=== PATIENT | female | born 1985 | race African-American/Black ===

== ENCOUNTER 2016-04-17 10:41 | Emergency (ER) | payer OTHER, SELFPAY ==
[2016-04-17] MEDS ORDERED: Fluorescein Opthalmic Strip ONE (10:57)
[2016-04-17] MEDS ORDERED: Tetracaine HCl 0.5% Ophth Soln 2 ML Bottle ONE (10:58)
[2016-04-17] MEDS ORDERED: Ibuprofen 800 MG TAB ONE (11:11)
[2016-04-17] MEDS ORDERED: HYDROcodone/Acetaminophen 10/325 mg Tablet ONE (11:12)
[2016-04-17] MEDS ORDERED: Cyclopentolate 1% Opth Drop 2 ML BOT ONE (11:51)
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
== END 2016-04-17 12:18 | disposition home or self-care (01) ==
LOC: NAV ERS 10:41
DX: H20.9 Unspecified iridocyclitis (principal); X58.XXXA Exposure to other specified factors, initial encounter
CPT/HCPCS: 70480

== ENCOUNTER 2016-04-22 20:38 | Emergency (ER) | payer SELFPAY ==
[2016-04-22] MEDS ORDERED: Ibuprofen 800 MG TAB ONE (20:52)
[2016-04-22] MEDS ORDERED: Oseltamivir 75 MG CAP ONE (21:26)
--- NOTE | 2016-04-22 23:57 | ERRECORD ---
[facility] EMERGENCY RECORD HPI FLU-LIKE SYNDROME (21:14 JROB) CHIEF COMPLAINT: Patient presents for evaluation of body aches, Patient presents for evaluation of fever. HISTORIAN: History provided by patient, 31 year old female presents with fever, body aches, chills, sweats. Was exposed to family member with similar symptoms. Had flu in the past and states that this feels the same. Has been taking an OTC multi symptom flu relief liquid medicine. LOCATION: Symptoms are generalized. QUALITY: aching. TIME COURSE: Gradual onset of symptoms, Symptoms are worsening. ASSOCIATED WITH: No associated abdominal pain, No associated chest pain, Associated with cough, No associated diarrhea, No associated headache, Associated with vomiting, No associated rash, No associated shortness of breath, No associated urinary tract infection signs or symptoms. EXACERBATED BY: Patient's condition exacerbated by nothing. RELIEVED BY: Patient's condition relieved by nothing. ROS (21:16 JROB) CONSTITUTIONAL: Historian reports fever, reports malaise, reports night sweats. EYES: Historian denies vision changes. ENT: Historian reports sore throat. RESPIRATORY: Historian reports cough, denies shortness of breath. GI: Historian denies diarrhea, reports vomiting. GENITOURINARY FEMALE: Historian denies dysuria. MUSCULOSKELETAL: Historian reports myalgias. SKIN: Historian denies rash. NEUROLOGIC: Historian denies headache. HEMO/LYMPHATIC: Historian denies abnormal blood clotting. ALLERGIC/IMMUNOLOGIC: Historian denies frequent infections. NOTES: All systems reviewed, negative except as described above. PAST MEDICAL HISTORY MEDICAL HISTORY: No past medical history, Flu vaccine not up to date, Tetanus immunization up to date. (20:51 LKRC) FEMALE SURGICAL HISTORY: Patient has no surgical history. (20:51 LKRC) PSYCHIATRIC HISTORY: No previous psychiatric history. (20:51 LKRC) SOCIAL HISTORY: Patient denies alcohol use, Patient denies drug use, Patient has no smoking history, Lives at home, with family. (20:51 LKRC) NOTES: Nursing records reviewed, Agree with nursing records, Medication list reviewed. (21:19 JROB) KNOWN ALLERGIES No Known Drug Allergies &a-1R&a+25V*p+0X*b3968X*c202B*c15G*c2P*p-0X&a-25V&a+1R Name: Josy Long : 1985 F31 MedRec: [id number] AcctNum: [id number] Prepared: Yissel Apr 22, 2016 21:46 by Interface Page 1 of 3 pMD [facility] EMERGENCY RECORD CURRENT MEDICATIONS (20:49 [facility]) prednisoLONE acetate: SUSPENSION, DROPS(FINAL DOSAGE FORM)(ML) : Strength - 1 % : OPHTHALMIC Patient Dose: * OPHTHALMIC 4 times a day. VITAL SIGNS VITAL SIGNS: BP: 103/74, Pulse: 117, Resp: 18, Temp: 99.5 (Oral), Pain: 10, O2 sat: 98 on Room Air, Time: 04/22/2016 20:43. (20:43 [facility]) BP: 113/69, Pulse: 109, O2 sat: 96 on Room Air, Time: 04/22/2016 21:00. (21:00 [facility]) PHYSICAL EXAM (21:17 JROB) CONSTITUTIONAL: Vital signs reviewed, Patient afebrile, Pulse, tachycardic, Blood pressure normal, Patient alert and oriented to person, place and time, uncomfortable. HEAD: Head exam normal, Head exam included findings of head atraumatic. EYES: Eye exam normal, Pupils equally round and reactive to light, Extraocular muscles intact. ENT: Nose exam normal, Pharynx exam normal, Mouth exam normal. NECK: Neck exam normal, no cervical adenopathy. RESPIRATORY CHEST: Breath sounds clear, No wheezing, No rales, No rhonchi. CARDIOVASCULAR: Cardiovascular exam included findings of, rate tachycardic, rhythm regular. ABDOMEN FEMALE: Abdominal exam included findings of abdomen nontender, no distension, no peritoneal signs. BACK: mild diffuse muscle tenderness in thoracic and lumbar areas. UPPER EXTREMITY: Upper extremity exam normal, Upper extremity exam included findings of inspection normal, Motor strength normal, Sensation intact. LOWER EXTREMITY: Lower extremity exam normal, Lower extremity exam included findings of inspection normal, Motor strength normal, Sensation intact. NEURO: Neuro exam findings include patient oriented to person, place and time, no focal motor deficits, no focal sensory deficits. SKIN: Skin exam included findings of skin warm, dry, no rash. MEDICATION ADMINISTRATION SUMMARY Drug Name: Tamiflu, Dose Ordered: 1 cap(s), Route: Oral, Status: Given, Time: 21:27 04/22/2016, Drug Name: ibuprofen, Dose Ordered: 800 mg, Route: Oral, Status: Given, Time: 20:54 04/22/2016, Detailed record available in Medication Service section. &a-1R&a+25V*p+0X*m1971X*c202B*c15G*c2P*p-0X&a-25V&a+1R Name: Josy Long : 1985 F31 MedRec: [id number] AcctNum: [id number] Prepared: Yissel Apr 22, 2016 21:46 by Interface Page 2 of 3 pMD [facility] EMERGENCY RECORD DOCTOR NOTES TEXT: Ordered Motrin, flu. (21:20 JROB) Flu A positive. Will give dose Tamiflu, d/c home with same to follow up in clinic. (21:22 JROB) PATIENT STATUS: Patient has improved since arrival to emergency department. (21:22 JROB) PATIENT PLAN: The patient will be discharged, The patient will follow up with primary care physician. (21:22 JROB) The patient will be discharged, The patient will follow up with primary care physician. (21:29 JROB) DATA REVIEWED: Lab data reviewed. (21:22 JROB) Lab data reviewed. (21:29 JROB) PROBLEM LIST No recorded problems DIAGNOSIS DIFFERENTIAL: Based on history, exam and ancillary studies if indicated: Impression: fever, Impression: viral URI, Impression: influenza, Impression: Viral Syndrome, Diagnoses considered are not limited to those documented above. (21:31 JROB) FINAL: PRIMARY: FLU D/T OTH ID FLU VIR OTH RSP MANF. (21:32 JROB) PRESCRIPTION Tamiflu: CAPSULE : 75 mg : ORAL : Quantity: 1 Unit: cap(s) Route: ORAL Schedule: 2 times a day Dispense: 10 Unit: cap(s) May substitute. Refills: No Refills . (21:30 JROB) NOTES: No Refills. (21:30 JROB) acetaminophen-codeine: TABLET : 300 mg-30 mg : ORAL : Quantity: 1 Unit: tab(s) Route: ORAL Schedule: every 6 hours PRN Dispense: 15 Unit: tab(s) May substitute. Refills: No Refills . (21:31 JROB) NOTES: No Refills. (21:31 JROB) DISPOSITION PATIENT: Disposition Type: Discharge, Disposition: *Discharge Home. (21:32 JROB) Patient left the department. (21:38 MBOS) Hernandes: JROB=MD Ricardo, Shaheed LKRC=BETTINA Orona, Catherine MBOS=BETTINA Herrera, Sayra &a-1R&a+25V*p+0X*k0403E*c202B*c15G*c2P*p-0X&a-25V&a+1R Name: Josy Long : 1985 F31 MedRec: [id number] AcctNum: [id number] Prepared: Yissel Apr 22, 2016 21:46 by Interface Page 3 of 3 pMD MTDD
--- NOTE | 2016-04-23 00:11 | PICIS ---
[facility] EMERGENCY RECORD TRIAGE (SatApr 22, 2016 20:48 [facility]) TRIAGE NOTES: FEVER, BODY ACHES, CHILLS, SWEATING. HIGHEST TEMP 102F. PT STATES SHE HAS HAD THE FLU IN THE PAST AND THE SYMPTOMS ARE THE SAME. (SatApr 22, 2016 20:48 [facility]) PATIENT: NAME: Josy Long, AGE: 31, GENDER: female, : Sat1985, TIME OF GREET: SatApr 22, 2016 20:39, PREFERRED LANGUAGE: [place], ETHNICITY: Not or , ECODE BILLING MAP: [facility] ER, SSN: [id number], Zip Code: [address], KG WEIGHT: 77.56 (est.), PHONE: , , , PERSON ID: [id number], PCP: Oralia Bess, /Hammad. (Parker Apr 22, 2016 20:48 [facility]) COMPLAINT: FEVER,VOMITING,CHILLS. (Parker Apr 22, 2016 20:48 [facility]) ADMISSION: URGENCY: 4 Non Urgent, ADMISSION SOURCE: Home, TRANSPORT: CAR, BED: ER -04. (Parker Apr 22, 2016 20:48 [facility]) PAIN: Patient complains of pain described as, aching, Location BODY ACHES, Onset was 04/21/2016 19:00. (20:51 [facility]) IMMUNIZATIONS: Flu vaccine not up to date, Tetanus immunization up to date. (20:51 LK) SIRS SCORING: Heart Rate 55-109 (0), Temp range 96.8-101.1 (0), respiratory rate 12-24 (0), Mental Status altered: no (0). (20:51 LK) TRIAGE SCREENING: Patient denies suicidal ideation, Patient denies presence of domestic violence. (20:51 LK) TREATMENTS IN PROGRESS: Treatments given Prehospital: NONE. (20:51 LK) PROVIDERS: TRIAGE NURSE: Catherine Orona RN. (Parker Apr 22, 2016 20:48 [facility]) VITAL SIGNS: BP 103/74, Pulse 117, Resp 18, Temp 99.5, (Oral), Pain 10, O2 Sat 98, on Room Air, Time 04/22/2016 20:43. (20:43 [facility]) PREVIOUS VISIT ALLERGIES: No Known Drug Allergies. (Yissel Apr 22, 2016 20:48 LK) No Known Drug Allergies. (20:51 [facility]) KNOWN ALLERGIES No Known Drug Allergies CURRENT MEDICATIONS (20:49 [facility]) prednisoLONE acetate: SUSPENSION, DROPS(FINAL DOSAGE FORM)(ML) : Strength - 1 % : OPHTHALMIC Patient Dose: * OPHTHALMIC 4 times a day. VITAL SIGNS VITAL SIGNS: BP: 103/74, Pulse: 117, Resp: 18, Temp: 99.5 (Oral), Pain: 10, O2 sat: 98 on Room Air, Time: 04/22/2016 20:43. (20:43 [facility]) BP: 113/69, Pulse: 109, O2 sat: 96 on Room Air, Time: 04/22/2016 21:00. (21:00 [facility]) NURSING ASSESSMENT: HEAD-TO-TOE (20:50 [facility]) &a-1R&a+25V*p+0X*i8579Q*c202B*c15G*c2P*p-0X&a-25V&a+1R Name: Josy Long : 1985 F31 MedRec: [id number] AcctNum: [id number] Prepared: Yissel Apr 22, 2016 21:46 by Interface Page 1 of 7 pMD [facility] EMERGENCY RECORD CONSTITUTIONAL: Complex assessment performed, Patient arrives ambulatory, Gait steady, History obtained from patient, Patient appears, generally ill, Patient cooperative, Patient alert, Oriented to person, place and time, Skin warm, Skin, diaphoretic, Skin normal in color, Mucous membranes pink, Mucous membranes moist, Patient complains of FLU LIKE SYMPTOMS. PAIN: aching pain, BODY ACHES, Onset of pain 04/21/2016 19:00, on a scale 0-10 patient rates pain as 10. ENT: Ear assessment findings include ear normal to inspection, Nasal assessment findings include nose normal to inspection, Congestion, bilaterally, Mouth and throat assessment findings include mouth inspection normal, Associated with fever, Maximum temperature (degree F) 102F, orally, Associated with headache, Associated with decreased oral intake, PT STATES SHE HAS NOT BEEN ABLE TO EAT TODAY. RESPIRATORY/CHEST: Breath sounds clear, Respiratory assessment findings include respiratory effort easy, Respirations regular, Conversing normally, Neck and chest exam findings include trachea midline, Chest expansion equal, Chest movement symmetrical, no signs of distress, Associated with cough, Associated with fever. CARDIOVASCULAR: Cardiovascular assessment findings include heart rate normal, Heart sounds normal, Left radial pulse +3(easily palpated, considered normal), Right radial pulse +3(easily palpated, considered normal), Left dorsalis pedis pulse +3(easily palpated, considered normal), Right dorsalis pedis pulse +3(easily palpated, considered normal). ABDOMEN: Abdomen assessment findings include abdomen symmetrical, no discolorations, Abdomen soft, non-tender, no associated nausea, no associated vomiting, no associated diarrhea, Associated with appetite change, loss. NURSING PROCEDURE: DISCHARGE NOTE (21:36 MBOS) DISCHARGE: Patient discharged to home, ambulating without assistance, friend driving, unaccompanied, Summary of Care printed/ provided, Discharge instructions given to patient, Simple or moderate discharge teaching performed, Prescriptions given and instructions on side effects given, Above person(s) verbalized understanding of discharge instructions and follow-up care, Patient treated and evaluated by physician. NURSING PROCEDURE: ENT (20:55 [facility]) ENT: Nasal swab collected, labeled in the presence of the patient and sent to lab for testing of, influenza A, influenza B, collected by BETTINA TOMPKINS. NURSING PROCEDURE: NURSE NOTES (20:55 [facility]) NURSES NOTES: Notes: CRACKERS AND WATER GIVEN TO &a-1R&a+25V*p+0X*z5555G*c202B*c15G*c2P*p-0X&a-25V&a+1R Name: Josy Long : 1985 F31 MedRec: [id number] AcctNum: [id number] Prepared: Yissel Apr 22, 2016 21:46 by Interface Page 2 of 7 pMD [facility] EMERGENCY RECORD PATIENT. ORDER DETAILS Order Name: Influenza A&B Ag Screen, Status: Active, Time: 20:49 04/22/2016, User: CL, - Ordered for: MD Silva Joseph, - Entered by: MD Silva Joseph - Yissel Apr 22, 2016 20:49, - Quantity: 1. MEDICATION ADMINISTRATION SUMMARY Drug Name: Tamiflu, Dose Ordered: 1 cap(s), Route: Oral, Status: Given, Time: 21:27 04/22/2016, Drug Name: ibuprofen, Dose Ordered: 800 mg, Route: Oral, Status: Given, Time: 20:54 04/22/2016, Detailed record available in Medication Service section. MEDICATION SERVICE ibuprofen: Order: ibuprofen - Dose: 800 mg : Oral Schedule: Now Ordered by: Shaheed Silva MD Entered by: MD Yissel Vickers Apr 22, 2016 20:48 , Acknowledged by: BETTINA Espinoza Apr 22, 2016 20:51 Documented as given by: BETTINA Espinoza Apr 22, 2016 20:54 Patient, Medication, Dose, Route and Time verified prior to administration. Amount given: 800MG, Site: Medication administered P.O., Patient appears Awake and alert- acceptable, Correct patient, time, route, dose and medication confirmed prior to administration, Patient advised of actions and side-effects prior to administration, Allergies confirmed and medications reviewed prior to administration. Tamiflu: Order: Tamiflu (oseltamivir phosphate) - Dose: 1 cap(s) : Oral Schedule: Now Ordered by: Shaheed Silva MD Entered by: MD Yissel Vickers Apr 22, 2016 21:24 , Acknowledged by: BETTINA Espinoza Apr 22, 2016 21:26 Documented as given by: BETTINA Espinoza Apr 22, 2016 21:27 Patient, Medication, Dose, Route and Time verified prior to administration. Amount given: 75MG, Site: Medication administered P.O., Patient appears Awake and alert- acceptable, Correct patient, time, route, dose and medication confirmed prior to administration, Patient advised of actions and side-effects prior to administration, Allergies confirmed and medications reviewed prior to administration. HPI FLU-LIKE SYNDROME (21:14 JROB) CHIEF COMPLAINT: Patient presents for evaluation of body aches, Patient presents for evaluation of fever. &a-1R&a+25V*p+0X*w4305H*c202B*c15G*c2P*p-0X&a-25V&a+1R Name: Josy Long : 1985 F31 MedRec: [id number] AcctNum: [id number] Prepared: Yissel Apr 22, 2016 21:46 by Interface Page 3 of 7 pMD [facility] EMERGENCY RECORD HISTORIAN: History provided by patient, 31 year old female presents with fever, body aches, chills, sweats. Was exposed to family member with similar symptoms. Had flu in the past and states that this feels the same. Has been taking an OTC multi symptom flu relief liquid medicine. LOCATION: Symptoms are generalized. QUALITY: aching. TIME COURSE: Gradual onset of symptoms, Symptoms are worsening. ASSOCIATED WITH: No associated abdominal pain, No associated chest pain, Associated with cough, No associated diarrhea, No associated headache, Associated with vomiting, No associated rash, No associated shortness of breath, No associated urinary tract infection signs or symptoms. EXACERBATED BY: Patient's condition exacerbated by nothing. RELIEVED BY: Patient's condition relieved by nothing. ROS (21:16 JROB) CONSTITUTIONAL: Historian reports fever, reports malaise, reports night sweats. EYES: Historian denies vision changes. ENT: Historian reports sore throat. RESPIRATORY: Historian reports cough, denies shortness of breath. GI: Historian denies diarrhea, reports vomiting. GENITOURINARY FEMALE: Historian denies dysuria. MUSCULOSKELETAL: Historian reports myalgias. SKIN: Historian denies rash. NEUROLOGIC: Historian denies headache. HEMO/LYMPHATIC: Historian denies abnormal blood clotting. ALLERGIC/IMMUNOLOGIC: Historian denies frequent infections. NOTES: All systems reviewed, negative except as described above. PAST MEDICAL HISTORY MEDICAL HISTORY: No past medical history, Flu vaccine not up to date, Tetanus immunization up to date. (20:51 LKRC) FEMALE SURGICAL HISTORY: Patient has no surgical history. (20:51 LKRC) PSYCHIATRIC HISTORY: No previous psychiatric history. (20:51 LKRC) SOCIAL HISTORY: Patient denies alcohol use, Patient denies drug use, Patient has no smoking history, Lives at home, with family. (20:51 LKRC) NOTES: Nursing records reviewed, Agree with nursing records, Medication list reviewed. (21:19 JROB) PHYSICAL EXAM (21:17 JROB) CONSTITUTIONAL: Vital signs reviewed, Patient afebrile, Pulse, tachycardic, Blood pressure normal, Patient alert and oriented to person, place and time, uncomfortable. &a-1R&a+25V*p+0X*k5086H*c202B*c15G*c2P*p-0X&a-25V&a+1R Name: Josy Long : 1985 F31 MedRec: [id number] AcctNum: [id number] Prepared: Yissel Apr 22, 2016 21:46 by Interface Page 4 of 7 pMD [facility] EMERGENCY RECORD HEAD: Head exam normal, Head exam included findings of head atraumatic. EYES: Eye exam normal, Pupils equally round and reactive to light, Extraocular muscles intact. ENT: Nose exam normal, Pharynx exam normal, Mouth exam normal. NECK: Neck exam normal, no cervical adenopathy. RESPIRATORY CHEST: Breath sounds clear, No wheezing, No rales, No rhonchi. CARDIOVASCULAR: Cardiovascular exam included findings of, rate tachycardic, rhythm regular. ABDOMEN FEMALE: Abdominal exam included findings of abdomen nontender, no distension, no peritoneal signs. BACK: mild diffuse muscle tenderness in thoracic and lumbar areas. UPPER EXTREMITY: Upper extremity exam normal, Upper extremity exam included findings of inspection normal, Motor strength normal, Sensation intact. LOWER EXTREMITY: Lower extremity exam normal, Lower extremity exam included findings of inspection normal, Motor strength normal, Sensation intact. NEURO: Neuro exam findings include patient oriented to person, place and time, no focal motor deficits, no focal sensory deficits. SKIN: Skin exam included findings of skin warm, dry, no rash. LAB INTERPRETATION (21:21 JROB) INTERPRETATION: I reviewed the lab results, Influenza, positive for influenza A. EVENTS TRANSFER: Triage to Emergency Emergency Room -04. (20:48 [facility]) Removed from Emergency Emergency Room -04. (21:38 MBOS) O2SAT INTERPRETATION (21:20 JROB) O2SAT: Single pulse oximetry, Oxygen saturation 96%, on room air, Oxygen saturation interpretation: Normal, No intervention required. DOCTOR NOTES TEXT: Ordered Motrin, flu. (21:20 JROB) Flu A positive. Will give dose Tamiflu, d/c home with same to follow up in clinic. (21:22 JROB) PATIENT STATUS: Patient has improved since arrival to emergency department. (21:22 JROB) PATIENT PLAN: The patient will be discharged, The patient will follow up with primary care physician. (21:22 JROB) The patient will be discharged, The patient will follow up with primary care physician. (21:29 JROB) DATA REVIEWED: Lab data reviewed. (21:22 JROB) Lab data reviewed. (21:29 JROB) PROBLEM LIST &a-1R&a+25V*p+0X*y4722Q*c202B*c15G*c2P*p-0X&a-25V&a+1R Name: Josy Long : 1985 F31 MedRec: [id number] AcctNum: [id number] Prepared: Yissel Apr 22, 2016 21:46 by Interface Page 5 of 7 pMD [facility] EMERGENCY RECORD No recorded problems DIAGNOSIS DIFFERENTIAL: Based on history, exam and ancillary studies if indicated: Impression: fever, Impression: viral URI, Impression: influenza, Impression: Viral Syndrome, Diagnoses considered are not limited to those documented above. (21:31 JROB) FINAL: PRIMARY: FLU D/T OTH ID FLU VIR OTH RSP MANF. (21:32 JROB) DISPOSITION PATIENT: Disposition Type: Discharge, Disposition: *Discharge Home. (21:32 JROB) Patient left the department. (21:38 MBOS) INSTRUCTION (21:32 JROB) DISCHARGE: INFLUENZA (ADULT). PHARMACY: Tamiflu, acetaminophen-codeine. FOLLOWUP: [facility], /[facility], [address] [place] [id number], , Follow up with Primary Care Physician in 5 days. SPECIAL: Follow-up with your PCP We hope you feel better soon! We are always happy to take care of you and your family! Return to the ER immediately for any new, concerning, or worsening symptoms. PRESCRIPTION Tamiflu: CAPSULE : 75 mg : ORAL : Quantity: 1 Unit: cap(s) Route: ORAL Schedule: 2 times a day Dispense: 10 Unit: cap(s) May substitute. Refills: No Refills . (21:30 JROB) NOTES: No Refills. (21:30 JROB) acetaminophen-codeine: TABLET : 300 mg-30 mg : ORAL : Quantity: 1 Unit: tab(s) Route: ORAL Schedule: every 6 hours PRN Dispense: 15 Unit: tab(s) May substitute. Refills: No Refills . (21:31 JROB) NOTES: No Refills. (21:31 JROB) IMAGING (21:38 MBOS) *DISCHARGE INSTRUCTIONS RECEIPT: Image captured from scanner. Page 2 added. Image captured from scanner. *SUPPLY CHARGE SHEET: Image captured from scanner. ADMIN (21:32 JROB) DIGITAL SIGNATURE: MD Silva Joseph. RESULTS (21:21 JROB) MICROBIOLOGY: Influenza A&B Ag Screen: [id number] Collection DT: Yissel Apr 22, 2016 20:58, &a-1R&a+25V*p+0X*c0958O*c202B*c15G*c2P*p-0X&a-25V&a+1R Name: Josy Long : 1985 F31 MedRec: [id number] AcctNum: [id number] Prepared: Yissel Apr 22, 2016 21:46 by Interface Page 6 of 7 pMD [facility] EMERGENCY RECORD See comment below , @ ER ROOM#: ER-04 Source: Nasal swab Spec Desc: , *Influenza A Antigen: POSITIVE for the , * presence of , * INFLUENZA A Antigen , * - H , Influenza B Antigen: NEGATIVE for the , presence of , INFLUENZA B Antigen , The rapid Flu A&B test can distinguish between influenza A , Influenza A&B Ag Screen See comment below , and B viruses, but it does not differentiate influenza , Influenza A&B Ag Screen See comment below , subtypes. , Influenza A&B Ag Screen See comment below , Influenza A&B Ag Screen See comment below , Influenza A&B Ag Screen See comment below , Influenza A&B Ag Screen See comment below , characteristics of this device with human specimens infected , Influenza A&B Ag Screen See comment below , with the 2008 H1N1 influenza virus have not been , Influenza A&B Ag Screen See comment below , established. For example: this test cannot distinguish , Influenza A&B Ag Screen See comment below , influenza infections caused by novel H1N1 influenza A , Influenza A&B Ag Screen See comment below , viruses versus seasonal influenza A viruses. , Influenza A&B Ag Screen See comment below , , Influenza A&B Ag Screen See comment below , A negative result does not exclude influenza virus , Influenza A&B Ag Screen See comment below , infection; therefore, if more conclusive testing is desired, , Influenza A&B Ag Screen See comment below , follow up confirmatory testing is warranted., Influenza A&B Ag Screen See comment below . Hernandes: JROB=MD Ricardo, Shaheed CAMPBELLRC=BETTINA Orona, Catherine MBOS=BETTINA Herrera, Sayra &a-1R&a+25V*p+0X*l9644D*c202B*c15G*c2P*p-0X&a-25V&a+1R Name: Josy Long : 1985 F31 MedRec: [id number] AcctNum: [id number] Prepared: Yissel Apr 22, 2016 21:46 by Interface Page 7 of 7 pMD MTDD
== END 2016-04-22 21:35 | disposition home or self-care (01) ==
LOC: NAV ERS 20:38
DX: J10.1 Influenza due to other identified influenza virus with other respiratory manifestations (principal); Z79.899 Other long term (current) drug therapy
CPT/HCPCS: 99283

== ENCOUNTER 2016-04-24 09:52 | Emergency (ER) | payer OTHER, SELFPAY ==
[2016-04-24] MEDS ORDERED: Ondansetron ODT 4 MG TAB ONE (10:19)
--- NOTE | 2016-04-24 10:30 | ERRECORD ---
[facility] EMERGENCY RECORD HPI FLU-LIKE SYNDROME (10:17 JLOY) CHIEF COMPLAINT: Patient presents for evaluation of body aches, Patient presents for evaluation of fatigue, Patient presents for evaluation of upper respiratory infection, Patient presents for evaluation of Pt with 3 days of flu symptoms and diagnosed 2 days ago with Flu A and started on Tamiflu. Came in because 'its not getting better'. HISTORIAN: History provided by patient. LOCATION: Symptoms are generalized. QUALITY: Pain is dull in nature, described as aching. TIME COURSE: Gradual onset of symptoms, Symptoms are worsening, are constant. ASSOCIATED WITH: No associated abdominal pain, No associated chest pain, Associated with cough, productive, No associated diarrhea, Associated with vomiting, Number of times: stopped yesterday, currently resolved, Associated with shortness of breath, No associated urinary tract infection signs or symptoms. EXACERBATED BY: Patient's condition exacerbated by nothing. RELIEVED BY: Patient's condition relieved by nothing. ROS (10:19 JLOY) CONSTITUTIONAL: Historian denies chills, denies fever. EYES: Historian denies eye pain, denies eye redness, denies eye discharge. ENT: Historian reports rhinorrhea, reports sore throat. CARDIOVASCULAR: Historian denies chest pain. RESPIRATORY: Historian reports cough, reports shortness of breath, reports sputum. green. GI: Historian denies abdominal pain, reports anorexia, denies diarrhea, reports nausea, reports vomiting. GENITOURINARY FEMALE: Historian denies dysuria, denies frequency, denies hematuria. MUSCULOSKELETAL: Historian reports arthralgias, reports myalgias. SKIN: Historian denies rash, denies skin changes. PAST MEDICAL HISTORY MEDICAL HISTORY: No past medical history, Flu vaccine not up to date, Tetanus immunization up to date. (10:02 EPIE) FEMALE SURGICAL HISTORY: Patient has no surgical history. (10:02 EPIE) PSYCHIATRIC HISTORY: No previous psychiatric history. (10:02 EPIE) SOCIAL HISTORY: Patient denies alcohol use, Patient denies drug use, Patient has no smoking history, Lives at home, with family. (10:02 EPIE) NOTES: Nursing records reviewed, Agree with nursing records. &a-1R&a+25V*p+0X*f8127M*c202B*c15G*c2P*p-0X&a-25V&a+1R Name: Josy Long : 1985 F31 MedRec: [id number] AcctNum: [id number] Prepared: SatApr 24, 2016 10:26 by Interface Page [address] [facility] EMERGENCY RECORD (10:20 JL) KNOWN ALLERGIES No Known Drug Allergies CURRENT MEDICATIONS (10:01 EPIE) Tamiflu: CAPSULE : Strength - 75 mg : ORAL Patient Dose: 1 cap(s) Oral 2 times a day. acetaminophen-codeine: TABLET : Strength - 300 mg-30 mg : ORAL Patient Dose: 1 tab(s) Oral every 6 hours PRN. VITAL SIGNS (09:57 EPIE) VITAL SIGNS: BP: 114/59, Pulse: 97, Resp: 20 (Non-Labored), Temp: 99.1 (Oral), Pain: 10, O2 sat: 97 on Room Air, Time: 04/24/2016 09:57. PHYSICAL EXAM (10:20 JL) CONSTITUTIONAL: Vital signs reviewed, Patient appears non toxic, Patient alert and oriented to person, place and time. EYES: Eye exam included findings of eyelids normal to inspection, Pupils equally round and reactive to light, Conjunctiva normal. ENT: Pharynx exam normal, Uvula exam normal, Tonsil exam normal, Mouth exam normal, mucous membranes moist. NECK: Neck exam included findings of normal range of motion, Trachea midline, no cervical adenopathy. RESPIRATORY CHEST: Respiratory exam included findings of no respiratory distress, Breath sounds clear, No wheezing, No rales, No rhonchi, Chest exam included findings of chest movement symmetrical. CARDIOVASCULAR: Cardiovascular exam included findings of heart rate regular rate and rhythm, Heart sounds normal. ABDOMEN FEMALE: Abdominal exam included findings of abdomen nontender, Bowel sounds normal. BACK: Back exam included findings of normal inspection. UPPER EXTREMITY: Upper extremity exam included findings of inspection normal. LOWER EXTREMITY: Lower extremity exam included findings of inspection normal. NEURO: Marion coma scale 15, Neuro exam findings include patient oriented to person, place and time, Speech normal. SKIN: Skin exam included findings of skin warm, dry, and normal in color, no rash. MEDICATION ADMINISTRATION SUMMARY Drug Name: Zofran ODT, Dose Ordered: 4 mg, Route: Oral, Status: Given, Time: 10:20 04/24/2016, Detailed record available in Medication Service section. PROBLEM LIST &a-1R&a+25V*p+0X*a7117T*c202B*c15G*c2P*p-0X&a-25V&a+1R Name: Josy Long : 1985 F31 MedRec: [id number] AcctNum: [id number] Prepared: SatApr 24, 2016 10:26 by Interface Page [address] [facility] EMERGENCY RECORD No recorded problems DIAGNOSIS (10:15 MALINA) FINAL: PRIMARY: FLU D/T OTH ID FLU VIR OTH RSP MANF. PRESCRIPTION (10:14 MALINA) Tessalchon Perles: CAPSULE (HARD, SOFT, ETC.) : 100 mg : ORAL : Quantity: 100-200 Unit: mg Route: ORAL Schedule: every 8 hours PRN Dispense: 30 May substitute. Refills: No Refills . NOTES: No Refills. Zofran oral: TABLET : 4 mg : ORAL : Quantity: 1 Unit: tab(s) Route: ORAL Schedule: every 6 hours PRN Dispense: 20 May substitute. Refills: No Refills . NOTES: USE NEEDED FOR NAUSEA No Refills. DISPOSITION PATIENT: Disposition Type: Discharge, Disposition: *Discharge Home. (10:15 JORJE) Patient left the department. (10:24 JESSICA) Hernandes: CATALINA=BETTINA Santiago, Leta RECINOS=MD Ashvin, Chip LOPEZ=BETTINA Gomez, Kiko &a-1R&a+25V*p+0X*[id number]*c202B*c15G*c2P*p-0X&a-25V&a+1R Name: Josy Long : 1985 F31 MedRec: [id number] AcctNum: [id number] Prepared: SatApr 24, 2016 10:26 by Interface Page 3 of 3 pMD MTDD
== END 2016-04-24 10:22 | disposition home or self-care (01) ==
LOC: NAV ERS 09:52
DX: J10.1 Influenza due to other identified influenza virus with other respiratory manifestations (principal)
CPT/HCPCS: 99283; Q0162

== ENCOUNTER 2016-10-11 11:36 | Emergency (ER) | payer OTHER, SELFPAY ==
[2016-10-11] MEDS ORDERED: Ketorolac Tromethamine 30 MG/ML VIAL ONE (12:06)
[2016-10-11 12:23] LABS: Bilirubin Negative (Negative); Blood, Urine Moderate (Negative); Clarity Slightly Cloudy (Clear); Glucose, Urine (Dipstick) Negative (Negative); Leukocyte Moderate (Negative); Nitrite Negative (Negative); Protein, Urine (Dipstick) Negative (Neg-Trace); pH, Urine 8.5 (5.0-9.0)
[2016-10-11 12:33] LABS: Bacteria/HPF Rare-Few HPF (None Seen); RBC/HPF 0-3 HPF (0-3)
[2016-10-11] MEDS ORDERED: Dexamethasone 4 mg/ml Vial ONE (13:05)
== END 2016-10-11 13:11 | disposition home or self-care (01) ==
LOC: NAV ERS 11:36
DX: J02.9 Acute pharyngitis, unspecified (principal)
CPT/HCPCS: 81003; 81015; 87081; 87086; 87430; 96372; J1100; J1885

== ENCOUNTER 2021-09-26 22:23 | Emergency (ER) | payer SELFPAY ==
[2021-09-26] MEDS ORDERED: Bupivacaine 0.5% 10 ML VIAL ONE (22:50)
== END 2021-09-26 23:03 | disposition home or self-care (01) ==
LOC: NAV ERS 22:23
DX: K03.81 Cracked tooth (principal)
CPT/HCPCS: 99282; J3490

== ENCOUNTER 2024-04-25 17:48 | Emergency (ER) | payer OTHER, SELFPAY ==
[2024-04-25] MEDS ORDERED: Ketorolac Tromethamine 30 MG (1 mL) VIAL ONE (18:30)
[2024-04-25 18:47] LABS: #Eosinophils 0.1 thou/uL (0.0-0.7); #Lymphocytes 2.4 thou/uL (1.20-3.40); #Monocytes 0.5 thou/uL (0.11-0.59); #Neutrophils 4.8 thou/uL (1.40-6.50); %Basophils 0.5 % (0.0-1.0); %Eosinophils 1.6 % (0.0-10.0); %Lymphocytes 30.4 % (21.0-51.0); %Monocytes 6.5 % (0.0-10.0); Hematocrit 36.4 % (36.0-47.0); Hemoglobin 11.5 g/dL (12.0-16.0); Mean Corpuscular HGB CONC 31.7 g/dL (32.0-36.0); Mean Corpuscular Hemoglobin 27.3 pg (27.0-31.0); Mean Corpuscular Volume 86.3 fl (78.0-98.0); Mean Platelet Volume 8.4 fL (7.4-10.4); Platelet Count 284 10x3/uL (130-400); RBC Distribution Width 11.3 % (11.5-14.5); Red Blood Cell (RBC) Count 4.22 mill/uL (4.20-5.40); White Blood Cell (WBC) Count 7.9 10x3/uL (4.8-10.8)
[2024-04-25 19:06] LABS: Anion Gap 12 mmol/L (10-20); BUN (Urea Nitrogen) 9 mg/dL (7.0-18.7); Calc. Creatinine Clearance 0 mL/min (70-130); Calcium 9.5 mg/dL (7.8-10.44); Carbon Dioxide 24 mmol/L (22-29); Chloride 106 mmol/L (98-107); Estimated GFR 100; Glucose 100 mg/dL (70-105); Potassium 4.3 mmol/L (3.5-5.1); Sodium 138 mmol/L (136-145)
== END 2024-04-25 21:48 | disposition short-term general hospital (02) ==
LOC: NAV ERS 17:48
DX: M17.11 Unilateral primary osteoarthritis, right knee (principal)
CPT/HCPCS: 80048; 85025; 86140; 96374; J1885

== ENCOUNTER 2024-12-02 11:25 | Emergency (ER) | payer OTHER ==
[~2024-12-02 11:25] MED LIST: Iopamidol 370 76% 100 ML VIAL ONE
[2024-12-02 12:23] LABS: Glucose, Urine (Dipstick) Negative (Negative); Leukocyte Moderate (Negative); Protein, Urine (Dipstick) Negative (Neg-Trace); Specific Gravity, Urine 1.015 (1.005-1.030)
[2024-12-02 12:24] LABS: Bacteria/HPF Rare-Few HPF (None Seen); CAUTI Indications for Culture Dysuria,urgency,freq; Yeast-Budding 1+ HPF (None Seen)
[2024-12-02 12:25] LABS: Urine Culture Reflex No No
[2024-12-02 12:34] LABS: #Basophils 0.0 thou/uL (0.0-0.2); #Eosinophils 0.1 thou/uL (0.0-0.7); #Lymphocytes 1.7 thou/uL (1.20-3.40); #Monocytes 0.5 thou/uL (0.11-0.59); #Neutrophils 6.0 thou/uL (1.40-6.50); %Basophils 0.5 % (0.0-1.0); %Eosinophils 0.9 % (0.0-10.0); %Lymphocytes 20.2 % (21.0-51.0); %Monocytes 6.4 % (0.0-10.0); %Neutrophils 72.0 % (42.0-75.0); Hematocrit 36.5 % (36.0-47.0); Hemoglobin 12.3 g/dL (12.0-16.0); Mean Corpuscular Hemoglobin 29.1 pg (27.0-31.0); Mean Corpuscular Volume 86.3 fl (78.0-98.0); Platelet Count 246 10x3/uL (130-400); Red Blood Cell (RBC) Count 4.23 mill/uL (4.20-5.40); White Blood Cell (WBC) Count 8.3 10x3/uL (4.8-10.8)
[2024-12-02 12:40] LABS: BHCG - Serum Negative (NEGATIVE); Pregs Control Bar Appear? YES (CONTROL BAR)
[2024-12-02] MEDS ORDERED: Ketorolac Tromethamine 30 MG (1 mL) VIAL ONE (12:46)
[2024-12-02 12:50] LABS: ALT (SGPT) 8 U/L (Less than 34); AST (SGOT) 15 U/L (11-34); Albumin 3.8 g/dL (3.1-4.5); Alkaline Phosphatase 83 U/L (40-110); Anion Gap 14 mmol/L (10-20); BUN (Urea Nitrogen) 10 mg/dL (7.0-18.7); Bilirubin, Total 0.2 mg/dL (0.3-1.2); CK (CPK) 84 U/L (29-168); Calc. Creatinine Clearance 0 mL/min (70-130); Calcium 8.9 mg/dL (7.8-10.44); Carbon Dioxide 26 mmol/L (22-29); Chloride 101 mmol/L (98-107); Globulin 3.5 g/dL (2.4-3.5); Glucose 81 mg/dL (70-105); Potassium 3.7 mmol/L (3.5-5.1); Sodium 137 mmol/L (136-145)
== END 2024-12-02 14:20 | disposition home or self-care (01) ==
LOC: NAV ERS 11:25
DX: S00.33XA Contusion of nose, initial encounter (principal); S00.531A Contusion of lip, initial encounter; S00.12XA Contusion of left eyelid and periocular area, initial encounter; Y04.8XXA Assault by other bodily force, initial encounter
CPT/HCPCS: 70450; 70486; 71260; 74177; 80053; 81001; 82550; 84703; 85025; 96374; J1885; Q9967

== ENCOUNTER 2025-02-18 08:32 | Emergency (ER) | payer OTHER ==
[2025-02-18] MEDS ORDERED: Ondansetron PF 4 MG/2 ML Vial ONE (09:13)
[2025-02-18 09:27] LABS: #Basophils 0.2 thou/uL (0.0-0.2); #Eosinophils 0.0 thou/uL (0.0-0.7); #Lymphocytes 1.7 thou/uL (1.20-3.40); #Monocytes 0.6 thou/uL (0.11-0.59); #Neutrophils 6.8 thou/uL (1.40-6.50); %Basophils 2.7 % (0.0-1.0); %Eosinophils 0.5 % (0.0-10.0); %Lymphocytes 17.8 % (21.0-51.0); %Monocytes 6.5 % (0.0-10.0); %Neutrophils 72.5 % (42.0-75.0); Hematocrit 38.2 % (36.0-47.0); Hemoglobin 12.5 g/dL (12.0-16.0); Mean Corpuscular Hemoglobin 29.2 pg (27.0-31.0); Mean Corpuscular Volume 89.2 fl (78.0-98.0); Platelet Count 254 10x3/uL (130-400); Red Blood Cell (RBC) Count 4.28 mill/uL (4.20-5.40); White Blood Cell (WBC) Count 9.4 10x3/uL (4.8-10.8)
[2025-02-18 09:34] LABS: ALT (SGPT) 8 U/L (Less than 34); AST (SGOT) 20 U/L (11-34); Albumin 3.7 g/dL (3.1-4.5); Alkaline Phosphatase 86 U/L (40-110); Anion Gap 16 mmol/L (10-20); BHCG - Serum Negative (NEGATIVE); BUN (Urea Nitrogen) 12 mg/dL (7.0-18.7); Bilirubin, Total 0.4 mg/dL (0.3-1.2); Calc. Creatinine Clearance 0 mL/min (70-130); Calcium 9.0 mg/dL (7.8-10.44); Carbon Dioxide 22 mmol/L (22-29); Chloride 104 mmol/L (98-107); Globulin 3.9 g/dL (2.4-3.5); Glucose 121 mg/dL (70-105); Potassium 4.0 mmol/L (3.5-5.1); Pregs Control Bar Appear? YES (CONTROL BAR); Sodium 138 mmol/L (136-145)
[2025-02-18] MEDS ORDERED: Lidocaine 1% (PF) 30 ML VIAL ONE (10:35)
[2025-02-18] MEDS ORDERED: Ketorolac Tromethamine 30 MG (1 mL) VIAL ONE (10:59)
== END 2025-02-18 11:15 | disposition home or self-care (01) ==
LOC: NAV ERS 08:32
DX: S02.31XA Fracture of orbital floor, right side, initial encounter for closed fracture (principal); S02.831A Fracture of medial orbital wall, right side, initial encounter for closed fracture; S01.111A Laceration without foreign body of right eyelid and periocular area, initial encounter; Y04.0XXA Assault by unarmed brawl or fight, initial encounter
CPT/HCPCS: 70450; 70486; 72125; 80053; 80307; 84703; 85025; 96374; 96375; J1885; J2003; J2060; J2405; J3010

== ENCOUNTER 2025-02-28 16:59 | Emergency (ER) | payer OTHER | END 2025-02-28 17:28 | disposition home or self-care (01) | LOC: NAV ERS 16:59 | DX: S01.111D Laceration without foreign body of right eyelid and periocular area, subsequent encounter (principal) ==